=== PATIENT | male | born 1975 | race Caucasian/White ===

== ENCOUNTER 2018-04-27 12:47 | Emergency (ER) | payer OTHER ==
[2018-04-27 13:05] VITALS: BP 117/75
--- NOTE | 2018-04-27 13:49 | UC ---
Respiratory Complaint HPI - HPI Summary HPI Summary: started feeling sick with URI symptoms 5 days ago, got worse over past 2-[address], fever and fatigue, today ears and sinuses painful - History of Current Complaint Chief Complaint: UCRespiratory Stated Complaint: RESP ISSUE COUGH FEVER SORE THROAT Time Seen by Provider: 04/27/18 13:23 Hx Obtained From: Patient Onset/Duration: Gradual Onset Severity Initially: Mild Severity Currently: Moderate Pain Intensity: 5 Character: Cough: Nonproductive Aggravating Factors: Exertion Associated Signs And Symptoms: Positive: Fever, Chills, URI, Sinus Discomfort. Negative: Dizziness - Allergies/Home Medications Allergies/Adverse Reactions: Allergies Allergy/AdvReac Type Severity Reaction Status Date / Time No Known Allergies Allergy Verified 04/27/18 13:05 PMH/Surg Hx/FS Hx/Imm Hx Previously Healthy: Yes - Surgical History Surgical History: None - Family History Known Family History: Positive: None Negative: Cardiac Disease, Hypertension - Social History Occupation: Employed Full-time - [employer] Lives: With Family Alcohol Use: None Substance Use Type: None Smoking Status (MU): Never Smoked Tobacco Review of Systems All Other Systems Reviewed And Are Negative: Yes Constitutional: Positive: Fever, Chills, Fatigue Skin: Positive: Negative Eyes: Negative: Photophobia ENT: Positive: Ear Ache, Sinus Congestion, Sinus Pain/Tenderness Respiratory: Positive: Negative, Cough - slight dry Cardiovascular: Positive: Negative Gastrointestinal: Positive: Negative Musculoskeletal: Positive: Negative Neurological: Positive: Negative Psychological: Positive: Negative Is Patient Immunocompromised?: No Physical Exam Triage Information Reviewed: Yes Appearance: Well-Appearing, No Pain Distress, Well-Nourished Vital Signs: Initial Vital Signs Temp 100 F 04/27/18 13:02 Pulse 97 04/27/18 13:02 Resp 18 04/27/18 13:02 BP 117/75 04/27/18 13:02 Pulse Ox 98 04/27/18 13:02 Vital Signs Reviewed: Yes Eyes: Positive: Conjunctiva Clear ENT: Positive: Nasal congestion - R injected, TM bulging, TM dull, Sinus tenderness Neck exam: Normal Neck: Positive: Supple, Nontender, No Lymphadenopathy Respiratory Exam: Normal Respiratory: Positive: Lungs clear Cardiovascular Exam: Normal Cardiovascular: Positive: RRR Neurological Exam: Normal Psychological Exam: Normal Skin Exam: Normal Skin: Negative: Rashes UC Diagnostic Evaluation - Laboratory O2 Sat by Pulse Oximetry: 98 Respiratory Course/Dx - Differential Dx/Diagnosis Differential Diagnosis/HQI/PQRI: Bronchitis, Influenza, Lower Resp Infection, Sinusitis Provider Diagnosis: Sinusitis, Otalgia of both ears Discharge - Sign-Out/Discharge Documenting (check all that apply): Patient Departure All imaging exams completed and their final reports reviewed: No Studies - Discharge Plan Condition: Good Disposition: HOME Prescriptions: Amoxicillin/Clavulanate TAB* [Augmentin TAB 875*] 875 mg PO BID #20 tab Patient Education Materials: Sinusitis (ED) Referrals: Cy Shukla [Primary Care Provider] - 3 Days (as scheduled fro recheck) Additional Instructions: drink plenty of fluids and rest use over the counter ibuprofen for fever and pain start antibiotic and take as directed - Billing Disposition and Condition Condition: GOOD Disposition: Home
== END 2018-04-27 13:57 | disposition home or self-care (01) ==
LOC: UCEAST 12:47
DX: J32.9 Chronic sinusitis, unspecified (principal); H92.03 Otalgia, bilateral
CPT/HCPCS: 99212; G0463

== ENCOUNTER 2018-11-05 19:07 | Emergency (ER) | payer OTHER ==
[2018-11-05 19:28] VITALS: BP 133/80
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
[2018-11-06 11:52] LABS: ABS Basophils 0.1 10^3/ul (0-0.2); ABS Eosinophils 0.1 10^3/ul (0-0.6); ABS Lymphocytes 2.7 10^3/ul (1.0-4.8); ABS Monocytes 0.7 10^3/ul (0-0.8); ABS Neutrophils 4.8 10^3/ul (1.5-7.7); Eosinophil % 1.8 %; Hematocrit 42 % (42-52); Hemoglobin 14.5 g/dL (14.0-18.0); Lymphocyte % 32.6 %; Mean Corpuscular HGB Conc 35 g/dL (31-36); Mean Corpuscular Hemoglobin 31 pg (27-31); Mean Corpuscular Volume 90 fL (80-94); Mean Platelet Volume 8.9 fL (7.4-10.4); Nucleated Red Blood Cells % 0.1; Platelet Count 252 10^3/uL (150-450); Red Blood Count 4.65 10^6 /uL (4.18-5.48); Red Cell Distribution Width 13 % (10-15); White Blood Count 8.4 10^3/uL (3.5-10.8)
[2018-11-06 11:57] LABS: Albumin 4.6 g/dL (3.2-5.2); Calcium 9.7 mg/dL (8.6-10.3); Potassium 3.8 mmol/L (3.5-5.0); Total Bilirubin 0.3 mg/dL (0.2-1.0)
[2018-11-06 12:03] LABS: Albumin/Globulin Ratio 1.8 (1-3); BUN/Creatinine Ratio 16.5 (8-20); EGFR African American 101.7 (>60); EGFR Non-African American 84.1 (>60); Globulin 2.5 g/dL (2-4); Total Protein 7.1 g/dL (6.4-8.9)
[2018-11-06 12:17] LABS: TSH (Thyroid Stimulating Horm) 1.67 mcIU/mL (0.34-5.60)
== END 2018-11-05 20:10 | disposition home or self-care (01) ==
LOC: UCEAST 19:07
DX: R53.83 Other fatigue (principal)
CPT/HCPCS: 36415; 80053; 84443; 85025; 86618; 99211; G0463

== ENCOUNTER 2018-11-10 12:19 | Emergency (ER) | payer OTHER ==
[2018-11-10 12:28] VITALS: BP 112/71
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
== END 2018-11-10 13:25 | disposition home or self-care (01) ==
LOC: UCEAST 12:19
DX: S20.212A Contusion of left front wall of thorax, initial encounter (principal); S80.212A Abrasion, left knee, initial encounter; S50.312A Abrasion of left elbow, initial encounter; V19.9XXA Pedal cyclist (driver) (passenger) injured in unspecified traffic accident, initial encounter; Y93.55 Activity, bike riding; Y92.9 Unspecified place or not applicable; Y99.8 Other external cause status
CPT/HCPCS: 99211; G0463